=== PATIENT | male | born 1975 | race Caucasian/White ===

== ENCOUNTER 2022-04-08 02:20 | Emergency (ER) | payer BC ==
[~2022-04-08] VITALS: Ht 177.8 cm; Wt 84.0 kg
[2022-04-08 02:26] VITALS: BP 149/102
== END 2022-04-08 06:40 | disposition left against medical advice (07) ==
LOC: ER 02:20
DX: F10.129 Alcohol abuse with intoxication, unspecified (principal); F12.129 Cannabis abuse with intoxication, unspecified; Y90.9 Presence of alcohol in blood, level not specified
CPT/HCPCS: 99283